=== PATIENT | female | born 1965 | race Two or more races ===

== ENCOUNTER 2022-09-13 15:29 | Emergency (ER) | payer OTHER ==
[~2022-09-13] VITALS: Ht 154.9 cm; Wt 69.4 kg
[2022-09-13] MEDS ORDERED: NABUMETONE750 MG PO (16:00)
[2022-09-13] MEDS ORDERED: LYVISPAH20 MG PO (16:00)
[2022-09-13] MEDS ORDERED: LEVOTHYROXINE25 MCG PO (16:00)
[2022-09-13] MEDS ORDERED: ANTIFUNGAL113 GM TOP (17:16)
== END 2022-09-13 17:46 | disposition home or self-care (01) ==
LOC: ER 15:29
DX: B35.9 Dermatophytosis, unspecified (principal)